=== PATIENT | male | born 1990 | race Caucasian/White ===

== ENCOUNTER 2017-12-30 16:53 | Emergency (ER) | payer OTHER | END 2017-12-30 18:38 | disposition home or self-care (01) | LOC: E/R 18:38 | DX: M25.532 Pain in left wrist (principal) | CPT/HCPCS: 29125; 99283-25 ==

== ENCOUNTER 2018-07-13 15:17 | Emergency (ER) | payer MEDICAID, OTHER | END 2018-07-13 16:13 | disposition home or self-care (01) | LOC: FTE 15:17 | DX: M25.532 Pain in left wrist (principal); Z87.891 Personal history of nicotine dependence | CPT/HCPCS: 29125; 99282-25 ==

== ENCOUNTER 2018-07-17 10:41 | Emergency (ER) | payer SELFPAY, MEDICAID | END 2018-07-17 14:58 | disposition left against medical advice (07) | LOC: FTE 10:41 | DX: Z53.21 Procedure and treatment not carried out due to patient leaving prior to being seen by health care provider (principal) ==

== ENCOUNTER 2018-09-09 05:44 | Emergency (ER) | payer SELFPAY, MEDICAID | END 2018-09-09 06:39 | disposition left against medical advice (07) | LOC: FTE 06:39 | DX: Z53.21 Procedure and treatment not carried out due to patient leaving prior to being seen by health care provider (principal) ==

== ENCOUNTER 2019-03-16 09:17 | Day surgery (SDC) | payer OTHER ==
[2019-03-16 10:15] LABS: ADD MAN DIFF? NO
[2019-03-16 10:18] LABS: BASOPHILS % 0.1 % (0.0-2.0); EOSINOPHILS # 0.1 10^3/ul (0.0-0.5); EOSINOPHILS % 0.9 % (0.0-7.0); HEMATOCRIT 45.2 % (42.0-52.0); HEMOGLOBIN 15.3 g/dl (14.0-18.0); LYMPHOCYTES # 1.7 10^3/ul (0.8-2.9); LYMPHOCYTES % 24.6 % (15.0-51.0); MEAN CORPUSCULAR HEMOGLOBIN 31.7 pg (29.0-33.0); MEAN CORPUSCULAR HGB CONC 33.8 g/dl (32.0-37.0); MEAN CORPUSCULAR VOLUME 93.6 fl (82.0-101.0); MEAN PLATELET VOLUME 8.7 fl (7.4-10.4); MONOCYTE # 0.6 10^3/ul (0.3-0.9); MONOCYTES % 9.4 % (0.0-11.0); NEUTROPHIL # 4.4 10^3/ul (1.6-7.5); NEUTROPHILS % 64.6 % (39.0-77.0); PLATELET COUNT 248 10^3/UL (140-415); RED BLOOD COUNT 4.83 10^6/ul (4.70-6.10)
[2019-03-16 10:18] LABS: WHITE BLOOD COUNT 6.8 10^3/ul (4.8-10.8)
[2019-03-16] MEDS ORDERED: ROCURONIUM 50 MG INJ (10:30)
[2019-03-16] MEDS ORDERED: PROPOFOL 20 ML (10:30)
[2019-03-16] MEDS ORDERED: LACTATED RINGER'S 1,000 ML IV (10:30)
[2019-03-16] MEDS ORDERED: NEOSTIGMINE 3 MG/3 ML SYRINGE (10:30)
[2019-03-16] MEDS ORDERED: GLYCOPYRROLATE 0.4 MG INJ (10:30)
[2019-03-16] MEDS ORDERED: CEFAZOLIN 1 GM INJ (10:30)
[2019-03-16] MEDS ORDERED: MIDAZOLAM 1 MG/ML 2 ML INJ (10:31)
[2019-03-16] MEDS ORDERED: ROPIVACAINE 0.5 % 30 ML VIAL (10:31)
[2019-03-16] MEDS ORDERED: DEXAMETHASONE 4 MG/ML 5 ML INJ (10:31)
[2019-03-16] MEDS ORDERED: FENTAnyl 50 MCG/ML VIAL ×2 (10:31→11:53)
[2019-03-16] MEDS ORDERED: ONDANSETRON 4 MG INJ (10:31)
[2019-03-16 10:52] LABS: ANION GAP 9 (5-13); BLOOD UREA NITROGEN 17 mg/dl (7-20); CALCIUM 9.8 mg/dl (8.4-10.2); CARBON DIOXIDE 26 mmol/L (21-31); CHLORIDE 102 mmol/L (97-110); CREATININE 0.92 mg/dl (0.61-1.24); Estimated GFR > 60 mL/min (>60); GLUCOSE 106 mg/dl (70-220); POTASSIUM 3.8 mmol/L (3.5-5.1); SODIUM 137 mmol/L (135-144)
[2019-03-16] MEDS ORDERED: LIDOCAINE 1% (MPF) 30 ML INJ (10:59)
[2019-03-16] MEDS ORDERED: BUPIVACAINE 0.25% (MPF) 30 ML INJ (10:59)
[2019-03-16] MEDS ORDERED: HYDROmorphONE 1 MG/5 ML IV SYRINGE IV ×3 (11:30)
[2019-03-16] MEDS ORDERED: hydrALAzine 20 MG INJ IV (11:30)
[2019-03-16] MEDS ORDERED: LABETALOL HCL 20MG INJ IV (11:30)
[2019-03-16] MEDS ORDERED: DIPHENHYDRAMINE 50 MG INJ IV (11:30)
[2019-03-16] MEDS ORDERED: ONDANSETRON 4 MG INJ IV (11:30)
[2019-03-16] MEDS ORDERED: FENTAnyl 50 MCG/ML VIAL IV ×3 (11:30)
[2019-03-16] MEDS ORDERED: MIDAZOLAM 1 MG/ML 2 ML INJ IV (11:30)
[2019-03-16] MEDS ORDERED: OXYCODONE/ACETAMINOPHEN (5/325) TAB PO ×2 (11:30)
[2019-03-16] MEDS ORDERED: TRIMETHOBENZAMIDE 100 MG/ML VIAL IM (11:30)
[2019-03-16] MEDS ORDERED: MEPERIDINE 25 MG INJ IV (11:30)
[2019-03-16] MEDS ORDERED: EPHEDrine 25 MG/5 ML SYG IV (11:30)
[2019-03-16] MEDS ORDERED: ALBUTEROL 0.083% (NEB) 2.5 MG/3 ML AMP HHN (11:30)
[2019-03-16] MEDS ORDERED: IPRATROPIUM (NEB) 0.5 MG/2.5 ML AMP HHN (11:30)
[2019-03-16] MEDS: POLYMYXIN/BACITRACIN 1L IRRIG IRR (12:04)
[2019-03-16] MEDS ORDERED: POLYMYXIN/BACITRACIN 1L IRRIG (15:20)
[2019-03-16] MEDS: BACITRACIN/POLYMYXIN 28.35 GM OINT TOP (15:33)
== END 2019-03-16 17:20 | disposition home or self-care (01) ==
LOC: SDS 09:17
DX: S62.002K Unspecified fracture of navicular [scaphoid] bone of left wrist, subsequent encounter for fracture with nonunion (principal); X58.XXXD Exposure to other specified factors, subsequent encounter
CPT/HCPCS: 25825; 73110-LT; 80048; 85025; 88304; 88311